=== PATIENT | male | born 1975 | race Two or more races ===

== ENCOUNTER 2016-08-07 12:01 | Emergency (ER) | payer OTHER ==
[~2016-08-07] VITALS: Ht 176 cm; Wt 84.0 kg
[2016-08-07 12:34] VITALS: BP 122/71
[2016-08-07 12:44] LABS: INFLUENZA A PATIENT NEGATIVE (NEGATIVE); INFLUENZA B PATIENT NEGATIVE (NEGATIVE)
[2016-08-07] MEDS ORDERED: ALBU8.5H3 INH (12:55)
[2016-08-07] MEDS ORDERED: BENZ100C PO (12:55)
[2016-08-07] MEDS ORDERED: HYDR-971 PO (12:55)
--- NOTE | 2016-08-07 12:55 | PHYS DOC ---
Past History Past Medical History: No Pertinent History Past Surgical History: No Surgical History Alcohol Use: None Drug Use: None Adult General Chief Complaint Chief Complaint: FLU SYMPTOM HPI HPI 40-year-old male presenting to emergency Department for evaluation of cough congestion runny nose and body aches and fatigue has been going on for the past 2-3 days. Cough is nonproductive however he feels quite congested in his chest and his face. He denies any fevers chills nausea vomiting production to his cough shortness of breath or diaphoresis. He says that he is healthy overall with up-to-date immunizations. He is in no obvious distress with normal vital signs. Review of Systems Review of Systems Constitutional: Denies fever or chills [] Eyes: Denies change in visual acuity, redness, or eye pain [] HENT: + nasal congestion and sore throat [] Respiratory: + cough. No shortness of breath [] Cardiovascular: No CP GI: Denies abdominal pain, nausea, vomiting, bloody stools or diarrhea [] Musculoskeletal: Positive myalgias Integument: Denies rash or skin lesions [] Neurologic: Denies headache, focal weakness or sensory changes [] Allergies Allergies Allergies Coded Allergies Type Severity Reaction Last Updated Verified No Known Drug Allergies 08/07/16 No Physical Exam Physical Exam Constitutional: Well developed, well nourished, no acute distress, non-toxic appearance. [] HENT: Normocephalic, atraumatic, bilateral external ears normal, oropharynx moist, no oral exudates, nose with boggy turbinates and rhinorrhea. [] Eyes: PERRLA, EOMI, conjunctiva normal, no discharge. [] Neck: Normal range of motion, no tenderness, supple, no stridor. [] Cardiovascular:Heart rate regular rhythm, no murmur [] Lungs & Thorax: Good aeration with expiratory wheezes noted. Abdomen: Bowel sounds normal, soft, no tenderness, no masses, no pulsatile masses. [] Skin: Warm, dry, no erythema, no rash. [] Back: No tenderness, no CVA tenderness. [] Extremities: No tenderness, no cyanosis, no clubbing, ROM intact, no edema. [] Neurologic: Alert and oriented X 3, normal motor function, normal sensory function, no focal deficits noted. [] Current Patient Data Vital Signs Vital Signs Date Time Temp Pulse Resp B/P Pulse Ox O2 Delivery O2 Flow Rate FiO2 08/07/16 12:34 98.7 84 20 98 Room Air Lab Results Laboratory Tests Test 08/07/16 12:01 Influenza Type A (Rapid) Negative (NEGATIVE) Influenza Type B (Rapid) Negative (NEGATIVE) EKG EKG [] Radiology/Procedures Radiology/Procedures [] Course & Med Decision Making Course & Med Decision Making Rapid strep and flu test are negative. Times are consistent with a viral URI so he'll be treated supportively as an outpatient with directions for over-the- counter meds and will give a prescription for Mercedita Tessalon albuterol and have him follow up with primary care provider next week to ensure improvement come back to the ER sooner with any worsening pain shows breath for the general concerns. Patient Aware and agreeable with plan and verbalizes understanding of the above instructions. Dragon Disclaimer Dragon Disclaimer This chart was dictated in whole or in part using Voice Recognition software in a busy, high-work load, and often noisy Emergency Department environment. It may contain unintended and wholly unrecognized errors or omissions. Departure Departure: Impression: Primary Impression: URI (upper respiratory infection) Disposition: HOME, SELF-CARE Condition: GOOD Patient Instructions: Upper Respiratory Infection, Adult Additional Instructions: TAKE 400MG OF IBUPROFEN EVERY 6 HOURS FOR PAIN AND THE NORCO FOR BREAKTHROUGH PAIN. USE OTC BENADRYL AND NASONEX FOR THE CONGESTION. CEPACOL WITH HELP WITH A SORE THROAT. Scripts Albuterol Sulfate (Proair Hfa Inhaler)8.5 Gm Hfa.aer.ad2 Puff INH PRN Q6HRS PRN SHORTNESS OF BREATH #1 INHALER Ref 0 Prov:LIZZ ROBLERO DO 08/07/16 Benzonatate (Tessalon Perle)100 Mg Difacoc723 Mg PO Q8HRS PRN COUGH #14 CAP Prov:LIZZ ROBLERO DO 08/07/16 Hydrocodone Bit/Acetaminophen (Mercedita 5-325 Tablet)1 Each Tablet1 Tab PO PRN Q6HRS PRN PAIN #10 TAB Ref 0 Prov:LIZZ ROBLERO DO 08/07/16 LIZZ ROBLERO DO Aug 07, 2016 12:55
== END 2016-08-07 12:55 | disposition home or self-care (01) ==
LOC: ER 12:01
DX: J06.9 Acute upper respiratory infection, unspecified (principal)
CPT/HCPCS: 87070; 87804; 87880; 99284